=== PATIENT | male | born 1990 | race Caucasian/White ===

== ENCOUNTER 2017-04-01 04:43 | Emergency (ER) | payer OTHER ==
[~2017-04-01] VITALS: Ht 185.4 cm; Wt 81.7 kg
[2017-04-01 05:40] LABS: BASOPHILS 0.7 % (0.0-2.0); EOSINOPHILS 1.3 % (0.0-3.0); HEMATOCRIT 45.9 % (42.0-52.0); HEMOGLOBIN 15.9 gm/dL (14.0-18.0); LYMPHOCYTES 23.4 % (24.0-44.0); MCHC 34.7 g/dL (28.0-37.0); MCV 89.3 fL (80.0-100.0); MONOCYTES 7.9 % (1.0-8.0); PLATELET COUNT 252 thou/uL (150-400); POLYS 66.7 % (36.0-66.0); RBC 5.14 mil/uL (4.50-6.00); RDW 13.4 % (10.5-14.5); WBC 7.4 thou/uL (4.0-11.0)
[2017-04-01 05:42] LABS: MANUAL DIFF NO
[2017-04-01 05:46] LABS: CALCIUM 9.1 mg/dL (8.5-10.1); POTASSIUM 3.7 mmol/L (3.5-5.1)
[2017-04-01 05:50] LABS: ALBUMIN 4.2 g/dL (3.4-5.0); TOTAL BILIRUBIN 1.1 mg/dL (<0.1-1.0); TOTAL PROTEIN 7.4 g/dL (6.4-8.2)
[2017-04-01] MEDS ORDERED: PROMS25 WY RECTAL (06:35)
[2017-04-01] MEDS ORDERED: ZOFRAN ODT4 MG PO (06:35)
[2017-04-01] MEDS ORDERED: PHENERGAN 25 MG25 M1 PO (06:35)
[2017-04-01] MEDS ORDERED: CITRATE OF MAG296 ML PO (06:40)
[2017-04-01 06:43] VITALS: BP 105/54
== END 2017-04-01 06:45 | disposition home or self-care (01) ==
LOC: ER 04:43
PROVIDERS: Emergency Medicine
DX: K59.00 Constipation, unspecified (principal); R11.2 Nausea with vomiting, unspecified; F17.210 Nicotine dependence, cigarettes, uncomplicated; F10.99 Alcohol use, unspecified with unspecified alcohol-induced disorder